=== PATIENT | female | born 1995 | race Caucasian/White ===

== ENCOUNTER 2016-08-30 19:12 | Emergency (ER) | payer OTHER ==
[~2016-08-30] VITALS: Ht 147.3 cm; Wt 51.3 kg
[~2016-08-30 19:12] MED LIST: DOXYCYCLINE100 M3 PO
[2016-08-30] MEDS ORDERED: PRENATAL1 TA3 PO (19:22)
[2016-08-30 20:43] LABS: BILIRUBIN NEGATIVE (NEGATIVE); BLOOD 2+ (NEGATIVE); CLARITY CLEAR (CLEAR); COLOR YELLOW (YELLOW); GLUCOSE NEGATIVE (NEGATIVE); KETONE NEGATIVE (NEGATIVE); LEUKO ESTERASE NEGATIVE (NEGATIVE); NITRITE NEGATIVE (NEGATIVE); PROTEIN NEGATIVE (NEGATIVE); SPECIFIC GRAVITY <= 1.005 (1.005-1.030); UROBILINOGEN 0.2 E.U./dl (0.2-1.0)
[2016-08-30 20:44] LABS: BASO % 0.3 % (0.0-1.0); EOS # 0.2 10*3/uL (0.0-0.4); EOS % 2.8 % (1.0-4.0); HEMOGLOBIN 13.5 g/dl (12.0-16.0); LYMPH # 2.7 10*3/uL (1.3-4.4); MEAN CELL VOLUME 94.5 fl (81.0-99.0); MEAN CORPUSCULAR HGB 31.1 pg (27.0-31.0); MEAN CORPUSCULAR HGB CONC 32.9 g/dl (33.0-37.0); MEAN PLATELET VOLUME 10.8 fl (9.6-12.3); MONO # 0.4 10*3/uL (0.1-1.0); MONO % 5.5 % (3.0-9.0); NEUT # 3.9 10*3/uL (2.3-7.9); NEUT % 54.3 % (47.0-73.0); PLATELET COUNT AUTOMATED 189 10*3/uL (130-400); RED BLOOD COUNT 4.34 10*6/uL (4.10-5.10); RED CELL DISTRI WIDTH 11.8 % (0-14.5); WHITE BLOOD COUNT 7.2 10*3/uL (4.8-10.8)
[2016-08-30 20:49] LABS: BUN 7 mg/dl (7-24); CARBON DIOXIDE 25 mmol/L (21-32); CHLORIDE 108 mmol/L (98-107); EST GLOM FILT AFRICAN AMERICAN > 60 ml/min; GLUCOSE 93 mg/dL (65-99); POTASSIUM 3.6 mmol/L (3.5-5.1); SODIUM 143 mmol/L (136-145)
[2016-08-30 20:58] LABS: EPITHELIAL CELLS 15-20; RBC 0-2 rbc/hpf (0-2); URINE REFLEX COMMENT YES (NO)
== END 2016-08-30 21:17 | disposition home or self-care (01) ==
LOC: ED 19:12
PROVIDERS: Emergency Medicine
DX: O20.0 Threatened abortion (principal); Z79.899 Other long term (current) drug therapy; Z3A.01 Less than 8 weeks gestation of pregnancy

== ENCOUNTER 2017-02-14 19:56 | Emergency (ER) | payer OTHER ==
[~2017-02-14] VITALS: Ht 147.3 cm; Wt 49.9 kg
[~2017-02-14 19:56] MED LIST changes: +PRENATAL1 TA3 PO
[2017-02-14] MEDS ORDERED: ZOLOFT100 MG PO (20:25)
[2017-02-14 20:34] LABS: BASO % 0.3 % (0.0-1.0); EOS # 0.1 10*3/uL (0.0-0.4); EOS % 1.4 % (1.0-4.0); HEMATOCRIT 41.9 % (37.0-47.0); HEMOGLOBIN 13.9 g/dl (12.0-16.0); LYMPH # 2.8 10*3/uL (1.3-4.4); LYMPH % 35.6 % (27.0-41.0); MEAN CELL VOLUME 92.3 fl (81.0-99.0); MEAN CORPUSCULAR HGB 30.6 pg (27.0-31.0); MEAN CORPUSCULAR HGB CONC 33.2 g/dl (33.0-37.0); MEAN PLATELET VOLUME 10.1 fl (9.6-12.3); MONO # 0.5 10*3/uL (0.1-1.0); MONO % 6.5 % (3.0-9.0); NEUT # 4.4 10*3/uL (2.3-7.9); NEUT % 55.9 % (47.0-73.0); PLATELET COUNT AUTOMATED 191 10*3/uL (130-400); RED BLOOD COUNT 4.54 10*6/uL (4.10-5.10); RED CELL DISTRI WIDTH 12.1 % (0-14.5); WHITE BLOOD COUNT 7.9 10*3/uL (4.8-10.8)
[2017-02-14 20:42] LABS: BILIRUBIN NEGATIVE (NEGATIVE); BLOOD NEGATIVE (NEGATIVE); CLARITY CLEAR (CLEAR); COLOR YELLOW (YELLOW); GLUCOSE NEGATIVE (NEGATIVE); KETONE NEGATIVE (NEGATIVE); LEUKO ESTERASE NEGATIVE (NEGATIVE); NITRITE NEGATIVE (NEGATIVE); SPECIFIC GRAVITY <= 1.005 (1.005-1.030); UROBILINOGEN 0.2 E.U./dl (0.2-1.0)
[2017-02-14 20:47] LABS: ACETAMINOPHEN (TYLENOL) < 2.0 ug/ml (10-30); ALBUMIN 4.2 gm/dl (3.1-4.5); ALKALINE PHOSPHATASE 58 U/L (45-117); BUN 11 mg/dl (7-24); CHLORIDE 106 mmol/L (98-107); CREATININE 0.68 mg/dL (0.55-1.02); POTASSIUM 3.9 mmol/L (3.5-5.1); SGOT/AST 16 IU/L (3-35); SGPT/ALT 23 U/L (12-78); SODIUM 140 mmol/L (136-145); TOTAL PROTEIN 7.7 gm/dL (6.4-8.2)
[2017-02-14 20:51] LABS: URINE AMPHETAMINES < 1000 (1000ng/ml); URINE BARBITURATES < 200 (200ng/ml); URINE BENZODIAZEPINES < 200 (200ng/ml); URINE CANNABINOIDS (THC) > 50 (50ng/ml); URINE COCAINE < 300 (300ng/ml); URINE METHADONE < 300 (300ng/ml); URINE OPIATES < 300 (300ng/ml)
[2017-02-14 20:52] LABS: BACTERIA TRACE; EPITHELIAL CELLS 35-40; WBC 0-2 wbc/hpf (0-5)
[2017-02-14 20:58] LABS: URINE PHENCYCLIDINE < 25 (25ng/ml)
== END 2017-02-15 08:21 | disposition short-term general hospital (02) ==
LOC: ED 19:56
PROVIDERS: Nurse Practitioner Family
DX: F32.9 Major depressive disorder, single episode, unspecified (principal); R45.851 Suicidal ideations; Z79.899 Other long term (current) drug therapy

== ENCOUNTER 2017-05-10 06:55 | Inpatient (IN) | payer OTHER ==
[~2017-05-10] VITALS: Ht 147.3 cm; Wt 54.0 kg
--- NOTE | ~2017-05-10 | PR ---
[place], [place] PROGRESS NOTE NAME: [facility] BL[facility]CO [id number] UNIT #: [id number] ROOM: [facility] DOCTOR: MYRON BAINS MD BIRTHDATE: [birth year] DOS: 05/11/2017 SUBJECTIVE: The patient has minimal cramps in her abdomen. She feels otherwise fine. Her mind is rested. She does not have any suicidal thoughts. OBJECTIVE: VITAL SIGNS: Blood pressure is 94/60, pulse of 87, respirations 18, temperature 99.5. LUNGS: Diminished breath sounds. HEART: Regular. ABDOMEN: Soft. EXTREMITIES: Without any edema. VAGINAL: Reveals bright red blood. ASSESSMENT AND PLAN: Substance abuse issues with self-mutilation. The patient is going to be seen by Dr. Weathers. I placed her back on her Zoloft. 2. Supraventricular tachycardia, converted. Awaiting an echocardiogram tomorrow. 3. Termination of most likely is going on right now. An hCG level will be ordered. MYRON BAINS MD CM:PNTRANS [id number] MYRON BAINS MD 05/11/17 1043 interface
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
--- NOTE | ~2017-05-10 | PR ---
[place], [place] PROGRESS NOTE NAME: PITER BLANCO UNIT #: [id number] ROOM: [facility] DOCTOR: TULIO NGUYEN MD BIRTHDATE: [birth year] DOS: 05/11/2017 SUBJECTIVE: The patient was seen at her bedside in the intensive care unit today, 05/11/2017, for followup of her paroxysmal supraventricular tachycardia. She is a 21-year-old woman who was hospitalized on this occasion for acute alcohol and drug intoxication with a history of anxiety, depression, self mutilation and a previous suicide attempt. She came in because she was having tachy palpitations and was found to be in a narrow complex tachycardia, consistent with AV sil reentrant tachycardia. She has had symptoms like this in the past, going back at least 10 years. She states lately they have been less frequent, but were much more symptomatic prior to her current admission. She was given adenosine in the Emergency Room and converted to sinus rhythm. This morning, she did have uterine bleeding. She also had some abdominal cramping and there is a concern that she is aborting her . PHYSICAL EXAMINATION: VITAL SIGNS: Her pulse is 89 and regular, blood pressure is 107/61. She has a low grade fever of 99.3. NECK: Supple. She has no jugular distention. Carotids are full. LUNGS: Respirations are unlabored. Her chest is clear to auscultation and percussion. HEART: Has a regular rhythm without murmurs, rubs or gallops. ABDOMEN: Soft and normally active. EXTREMITIES: Showed no edema. IMPRESSION: 1. 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 2. Acute drug use with cocaine, tetrahydrocannabinol, benzodiazepines and alcohol. 3. First trimester . 4. Possible spontaneous in progress. PLAN: We will continue to monitor her cardiac rhythms. No other cardiac workup aside from an echocardiogram is pending at this time. Eventually, she probably should be seen by Electrophysiology to consider an ablation. I thank Dr. Salinas for asking our advice regarding her care. [place], [place] PROGRESS NOTE NAME: PITER BLANCO UNIT #: [id number] ROOM: [facility] DOCTOR: TULIO NGUYEN MD BIRTHDATE: [birth year] TULIO NGUYEN MD CM:PNTRANS 1307 26 TULIO NGUYEN MD 05/11/17 1325 interface
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
--- NOTE | ~2017-05-10 | PR ---
[place], [place] PROGRESS NOTE NAME: PITER BLANCO [facility] #[facility] [id number] UNIT #: [id number] ROOM: [facility] DOCTOR: MYRON BAINS MD BIRTHDATE: [birth year] DOS: SUBJECTIVE: The patient continues to have cramps and she has had her menstrual periods back. OBJECTIVE: VITAL SIGNS: Blood pressure is 92/56, pulse of 92, respirations 20, temperature ____. LUNGS: Diminished breath sounds. No wheezes, rales or rhonchi heard. HEART: Regular. ABDOMEN: Obese, soft. EXTREMITIES: Without any edema. The left forearm, the cuts that she had on the forearm seem to be better. There is no infection. There is no redness. ASSESSMENT AND PLAN: 1. Self-mutilation because of underlying major depression, severe, recurrent. Awaiting consultation with Psych and after that she can just be discharged to home. 2. Supraventricular tachycardia, converted. The patient is advised to have further followup with Cardiology, possible event monitor as well as ablation and further studies for possibility of supraventricular tachycardia since she was 10 years old. 3. Very early , which seems to be terminating. Beta hCG dropped to 135-82. The patient to follow up with psych as an outpatient. MYRON BAINS MD CM:PNTRANS 1 1 MYRON BAINS MD 05/12/17 0930 interface
[~2017-05-10 06:55] MED LIST changes: +ZOLOFT100 MG PO
[2017-05-10] MEDS ORDERED: REMERON15 M2 PO (07:13)
[2017-05-10] MEDS ORDERED: VISTARIL50 MG PO (07:13)
[2017-05-10 07:28] LABS: BASO % 0.5 % (0.0-1.0); EOS # 0.1 10*3/uL (0.0-0.4); EOS % 0.9 % (1.0-4.0); HEMATOCRIT 45.2 % (37.0-47.0); HEMOGLOBIN 14.8 g/dl (12.0-16.0); LYMPH # 1.7 10*3/uL (1.3-4.4); LYMPH % 21.7 % (27.0-41.0); MEAN CELL VOLUME 91.5 fl (81.0-99.0); MEAN CORPUSCULAR HGB CONC 32.7 g/dl (33.0-37.0); MEAN PLATELET VOLUME 9.5 fl (9.6-12.3); MONO # 0.6 10*3/uL (0.1-1.0); MONO % 7.9 % (3.0-9.0); NEUT # 5.5 10*3/uL (2.3-7.9); NEUT % 68.8 % (47.0-73.0); PLATELET COUNT AUTOMATED 258 10*3/uL (130-400); RED BLOOD COUNT 4.94 10*6/uL (4.10-5.10); RED CELL DISTRI WIDTH 12.4 % (0-14.5)
[2017-05-10 07:29] VITALS: BP 150/78
[2017-05-10 07:42] LABS: ALBUMIN 4.5 gm/dl (3.1-4.5); ALKALINE PHOSPHATASE 70 U/L (45-117); BUN 7 mg/dl (7-24); CHLORIDE 105 mmol/L (98-107); CREATININE 0.79 mg/dL (0.55-1.02); POTASSIUM 3.8 mmol/L (3.5-5.1); SGOT/AST 19 IU/L (3-35); SGPT/ALT 24 U/L (12-78); SODIUM 141 mmol/L (136-145); TOTAL PROTEIN 8.5 gm/dL (6.4-8.2)
[2017-05-10 07:52] LABS: BILIRUBIN NEGATIVE (NEGATIVE); BLOOD NEGATIVE (NEGATIVE); CLARITY SL CLOUDY (CLEAR); COLOR YELLOW (YELLOW); GLUCOSE NEGATIVE (NEGATIVE); KETONE NEGATIVE (NEGATIVE); LEUKO ESTERASE NEGATIVE (NEGATIVE); NITRITE NEGATIVE (NEGATIVE); UROBILINOGEN 0.2 E.U./dl (0.2-1.0)
[2017-05-10 08:01] LABS: URINE AMPHETAMINES < 1000 (1000ng/ml); URINE BARBITURATES < 200 (200ng/ml); URINE BENZODIAZEPINES > 200 (200ng/ml); URINE CANNABINOIDS (THC) > 50 (50ng/ml); URINE COCAINE > 300 (300ng/ml); URINE METHADONE < 300 (300ng/ml); URINE OPIATES < 300 (300ng/ml)
[2017-05-10 08:03] LABS: URINE PHENCYCLIDINE < 25 (25ng/ml)
[2017-05-10 08:06] LABS: BACTERIA 1+; MUCOUS 1+
[2017-05-10 11:00] VITALS: BP 98/65
[2017-05-10] MEDS ORDERED: MINIPRESS1 M1 PO (11:33)
[2017-05-10 12:00] VITALS: BP 98/65
[2017-05-10 16:00] VITALS: BP 104/67
[2017-05-10 20:00] VITALS: BP 100/62
[2017-05-11] VITALS (10 sets, daily range): BP systolic 94–120; BP diastolic 55–80
[2017-05-12 04:00] VITALS: BP 92/56
[2017-05-12 08:00] VITALS: BP 110/60
[2017-05-12] MEDS ORDERED: ZOLOFT100 MG PO (08:16)
[2017-05-12] MEDS ORDERED: IBU800 M1 PO (08:16)
[2017-05-12] MEDS ORDERED: REMERON15 M2 PO (08:16)
[2017-05-12] MEDS ORDERED: NEOSPORIN OINT15 GM T (08:16)
[2017-05-12] MEDS ORDERED: MINIPRESS1 M1 PO (08:16)
[2017-05-12] MEDS ORDERED: VISTARIL50 MG PO (08:16)
[2017-05-12] MEDS ORDERED: LATU40TA PO (09:54)
== END 2017-05-12 12:50 | disposition home or self-care (01) | DRG 781 ==
LOC: ED 06:55 → EDHOLD 08:32 → ICCU 08:32 → 5E 08:32 → ICCU 08:45 → 5E 11:11 → ICCU 12:00
PROVIDERS: Emergency Medicine
DX: O99.321 Drug use complicating pregnancy, first trimester (principal); I47.1 Supraventricular tachycardia; F14.920 Cocaine use, unspecified with intoxication, uncomplicated; N90.810 Female genital mutilation status, unspecified; F32.9 Major depressive disorder, single episode, unspecified; O99.341 Other mental disorders complicating pregnancy, first trimester; O99.211 Obesity complicating pregnancy, first trimester; E66.9 Obesity, unspecified; F31.9 Bipolar disorder, unspecified; F60.9 Personality disorder, unspecified; F43.10 Post-traumatic stress disorder, unspecified; F41.9 Anxiety disorder, unspecified; O26.891 Other specified pregnancy related conditions, first trimester; O99.331 Smoking (tobacco) complicating pregnancy, first trimester; F17.210 Nicotine dependence, cigarettes, uncomplicated; Z79.899 Other long term (current) drug therapy; Z82.3 Family history of stroke; Z3A.00 Weeks of gestation of pregnancy not specified; Z71.6 Tobacco abuse counseling; Z68.24 Body mass index [BMI] 24.0-24.9, adult